=== PATIENT | female | born 1965 | race Caucasian/White ===

== ENCOUNTER 2019-10-25 22:39 | Emergency (ER) | payer MEDICAID ==
[~2019-10-25] VITALS: Ht 154.9 cm; Wt 75.0 kg
[2019-10-25 22:50] VITALS: BP 131/101
[2019-10-26] MEDS ORDERED: LORazepam 1 MG tablet PO ONE (00:10)
[2019-10-26] MEDS ORDERED: OLAN10TA3 PO (00:11)
[2019-10-26] MEDS ORDERED: DIVA500T2 PO (00:11)
--- NOTE | 2019-10-26 00:41 | NUR ---
pt refusing food or snack. she is refusing her lorazepam states she doesnt want to take any "narcotics." she is upset and talks about her life situation. She was instructed to fill her scripts and start taking her medications to help with her anxiety and stress.
== END 2019-10-26 00:42 | disposition home or self-care (01) ==
LOC: ER 22:40
DX: F41.9 Anxiety disorder, unspecified (principal); R56.9 Unspecified convulsions; F32.9 Major depressive disorder, single episode, unspecified; Z59.0 Homelessness; Z56.0 Unemployment, unspecified; Z88.8 Allergy status to other drugs, medicaments and biological substances; Z79.899 Other long term (current) drug therapy
CPT/HCPCS: 99284

== ENCOUNTER 2022-05-08 00:52 | Emergency (ER) | payer MEDICAID ==
[~2022-05-08] VITALS: Ht 152.4 cm; Wt 54.5 kg
[~2022-05-08 00:52] MED LIST: DIVA500T2 PO; OLAN10TA3 PO
[2022-05-08] MEDS ORDERED: HYDR50CA PO (02:00)
[2022-05-08] MEDS ORDERED: ALB0.5UD (02:00)
[2022-05-08] MEDS ORDERED: GABA300S (02:00)
[2022-05-08] MEDS ORDERED: HYDR50CA5 PO (02:00)
[2022-05-08] MEDS ORDERED: CEPH-585 PO (06:17)
[2022-05-08 06:31] VITALS: BP 145/73
== END 2022-05-08 06:33 | disposition home or self-care (01) ==
LOC: ER 00:53
DX: S61.411A Laceration without foreign body of right hand, initial encounter (principal); F41.9 Anxiety disorder, unspecified; F32.A Depression, unspecified; Z86.69 Personal history of other diseases of the nervous system and sense organs; Z72.89 Other problems related to lifestyle; Z56.0 Unemployment, unspecified; Z59.00 Homelessness unspecified; Z88.8 Allergy status to other drugs, medicaments and biological substances; Z79.2 Long term (current) use of antibiotics; Z79.899 Other long term (current) drug therapy; W01.0XXA Fall on same level from slipping, tripping and stumbling without subsequent striking against object, initial encounter; Y93.89 Activity, other specified; Y92.89 Other specified places as the place of occurrence of the external cause; Y99.8 Other external cause status
CPT/HCPCS: 12002; 99283; A6258; A6449

== ENCOUNTER 2024-01-05 16:44 | Outpatient (CLI) | payer MEDICAID ==
[~2024-01-05 16:44] MED LIST changes: +ALB0.5UD; +GABA300S3; +HYDR50CA PO; +HYDR50CA5 PO
== END 2024-01-05 23:59 | disposition home or self-care (01) ==
LOC: RAD 16:44
PROVIDERS: ATTEND Family Medicine
DX: M25.862 Other specified joint disorders, left knee (principal); M25.562 Pain in left knee
CPT/HCPCS: 73564

== ENCOUNTER 2024-03-28 13:46 | Outpatient (CLI) | payer MEDICAID | END 2024-03-28 23:59 | disposition home or self-care (01) | LOC: RAD 13:46 | PROVIDERS: ATTEND Family Medicine | DX: S61.213A Laceration without foreign body of left middle finger without damage to nail, initial encounter (principal); M41.86 Other forms of scoliosis, lumbar region; M43.8X3 Other specified deforming dorsopathies, cervicothoracic region; M43.8X5 Other specified deforming dorsopathies, thoracolumbar region; M54.50 Low back pain, unspecified; M79.89 Other specified soft tissue disorders; X58.XXXA Exposure to other specified factors, initial encounter; Y93.89 Activity, other specified; Y92.89 Other specified places as the place of occurrence of the external cause; Y99.8 Other external cause status | CPT/HCPCS: 72082; 73120 ==

== ENCOUNTER 2024-11-02 16:50 | Emergency (ER) | payer MEDICAID ==
[~2024-11-02] VITALS: Ht 167.6 cm; Wt 53.6 kg
[2024-11-02 16:54] VITALS: TEMP 98.7
[2024-11-02 17:57] LABS: BASOPHILS # (AUTO) 0.1 X10'3 (0-0.2); BASOPHILS % (AUTO) 0.3 % (0-1); EOSINOPHILS # (AUTO) 0.1 X10'3 (0-0.9); EOSINOPHILS % (AUTO) 0.7 % (0-6); HEMATOCRIT 40.2 % (35.0-45.0); HEMOGLOBIN 13.2 g/dl (12.0-16.0); LYMPHOCYTES # (AUTO) 0.9 X10'3 (1.1-4.8); LYMPHOCYTES % (AUTO) 4.7 % (21-51); MEAN CORPUSCULAR HEMOGLOBIN 28.8 PG (27.0-31.0); MEAN CORPUSCULAR HGB CONC 32.8 g/dL (33.0-36.5); MEAN CORPUSCULAR VOLUME 87.8 FL (78-98); MEAN PLATELET VOLUME 6.9 FL (7.4-10.4); MONOCYTES # (AUTO) 0.8 X10'3 (0-0.9); MONOCYTES % (AUTO) 4.4 % (2-12); NEUTROPHILS # (AUTO) 17.2 X10'3 (1.8-7.7); NEUTROPHILS % (AUTO) 89.9 % (42-75); PLATELET COUNT 463 X10'3 (140-440); RED BLOOD COUNT 4.58 X10'6 (4.20-5.60); RED CELL DISTRIBUTION WIDTH 15.4 % (11.5-14.5); WHITE BLOOD COUNT 19.1 X10'3 (4.5-11.0)
[2024-11-02 18:07] LABS: ALANINE AMINOTRANSFERASE 31 U/L (12-78); ALBUMIN 3.4 G/DL (3.4-5.0); ALBUMIN/GLOBULIN RATIO 0.8 (1.1-1.5); ALKALINE PHOSPHATASE 142 IU/L (46-116); ANION GAP 10 (8-16); ASPARTATE AMINO TRANSFERASE 30 U/L (10-37); BILIRUBIN,TOTAL 0.4 MG/DL (0.1-1.0); BLOOD UREA NITROGEN 12 MG/DL (7-18); BUN/CREATININE RATIO 20.7 (10.0-20.0); CALCIUM 8.6 MG/DL (8.5-10.1); CHLORIDE 104 MMOL/L (99-107); CREATININE 0.58 MG/DL (0.40-0.90); GLUCOSE 116 MG/DL (70-104); POTASSIUM 3.4 MMOL/L (3.5-5.1); SODIUM 141 MMOL/L (135-145); TOTAL PROTEIN 7.6 G/DL (6.4-8.2); eCRCL 91 ML/MIN; eGFR > 90 ML/MIN
[2024-11-02 18:09] LABS: LIPASE 338 U/L (16-77)
[2024-11-02] MEDS ORDERED: iohexol 300mg/ml 100ml inj. ONE (19:14)
[2024-11-02 20:50] LABS: BILIRUBIN,URINE NEGATIVE (Neg); CLARITY,URINE CLEAR (Clear); COLOR,URINE YELLOW (Yellow); GLUCOSE, URINE NEGATIVE (Neg); KETONES,URINE TRACE mg/dl (Neg); LEUKOCYTE ESTERASE ,URINE NEGATIVE (Neg); NITRITES, URINE NEGATIVE (Neg); OCCULT BLOOD,URINE NEGATIVE (Neg); PROTEIN,URINE NEGATIVE (Neg); UROBILINOGEN,URINE 0.2 E.U/dL (0.2-1.0)
[2024-11-02 21:11] VITALS: BP 116/72; PULSE 95; RESP 16; O2SAT 98
[2024-11-02 21:15] LABS: UA COLLECTION TYPE CLN CATCH MIDSTREAM
== END 2024-11-02 21:55 | disposition home or self-care (01) ==
LOC: ER 16:51
DX: R10.84 Generalized abdominal pain (principal); F41.9 Anxiety disorder, unspecified; F32.A Depression, unspecified; F10.90 Alcohol use, unspecified, uncomplicated; Y90.9 Presence of alcohol in blood, level not specified; Z88.8 Allergy status to other drugs, medicaments and biological substances; Z79.899 Other long term (current) drug therapy; Z56.0 Unemployment, unspecified; Z59.00 Homelessness unspecified
CPT/HCPCS: 36415; 74177; 80053; 81003; 83605; 83690; 84145; 85025; 93005; 99285; Q9967

== ENCOUNTER 2025-01-31 06:37 | Day surgery (SDC) | payer MEDICAID ==
--- NOTE | 2025-01-23 10:40 | ELECTROCARDIOGRAPH REPORT ---
[facility] Test Date: 2025-01-23 Test Time: 10:38:09 Pat Name: ART SEO Department: [facility]-PRE-OP Patient ID: [id number] Room: Gender: F Ear Specialist: MAN : 1965 Requested By: RENETTA JEAN Order Number: [id number] Reading MD: Dr. FARHAT Walker Measurements Intervals Tullos Rate: 61 P: 28 NE: 132 QRS: 10 QRSD: 90 T: -5 QT: 438 QTc: 442 Interpretive Statements Sinus rhythm Probable left ventricular hypertrophy Electronically Signed On 01-23-2025 17:23:[address] FARHAT Walker Please click the below link to view image of tracing.
[2025-01-23 10:42] LABS: BASOPHILS % (AUTO) 0.7 % (0-1); EOSINOPHILS # (AUTO) 0.3 X10'3 (0-0.9); EOSINOPHILS % (AUTO) 4.3 % (0-6); LYMPHOCYTES # (AUTO) 2.2 X10'3 (1.1-4.8); LYMPHOCYTES % (AUTO) 35.5 % (21-51); MEAN CORPUSCULAR HEMOGLOBIN 29.7 PG (27.0-31.0); MEAN CORPUSCULAR HGB CONC 33.7 g/dL (33.0-36.5); MEAN PLATELET VOLUME 7.2 FL (7.4-10.4); MONOCYTES # (AUTO) 0.4 X10'3 (0-0.9); MONOCYTES % (AUTO) 6.8 % (2-12); NEUTROPHILS # (AUTO) 3.2 X10'3 (1.8-7.7); NEUTROPHILS % (AUTO) 52.7 % (42-75); PRE OP HEMATOCRIT 40.6 % (35.0-45.0); PRE OP HEMOGLOBIN 13.7 g/dL (12.0-16.0); PRE OP PLATELET COUNT 347 X10'3 (140-440); PRE OP WHITE BLOOD COUNT 6.2 10'3 (4.8-10.8); RED BLOOD COUNT 4.61 X10'6 (4.20-5.60); RED CELL DISTRIBUTION WIDTH 15.9 % (11.5-14.5)
[2025-01-23 11:03] LABS: ALBUMIN 3.5 G/DL (3.4-5.0); ALBUMIN/GLOBULIN RATIO 0.9 (1.1-1.5); ALKALINE PHOSPHATASE 98 IU/L (46-116); BLOOD UREA NITROGEN 14 MG/DL (7-18); BUN/CREATININE RATIO 20.6 (10.0-20.0); CALCIUM 8.8 MG/DL (8.5-10.1); CHLORIDE 106 MMOL/L (99-107); CREATININE 0.68 MG/DL (0.40-0.90); PRE OP ALT 21 U/L (30-65); PRE OP ANION GAP 7 (8-16); PRE OP AST 20 U/L (10-37); PRE OP BILIRUB, TOTAL 0.2 MG/DL (0.0-1.0); PRE OP GLUCOSE 78 MG/DL (70-104); PRE OP POTASSIUM 4.6 MMOL/L (3.4-5.1); PRE OP SODIUM 141 MMOL/L (135-145); TOTAL CARBON DIOXIDE 27.8 MMOL/L (24-32); TOTAL PROTEIN 7.4 G/DL (6.4-8.2); eGFR 89 ML/MIN
[~2025-01-31] VITALS: Ht 154.9 cm; Wt 58.1 kg
[2025-01-31] VITALS (11 sets, daily range): BP systolic 104–153; BP diastolic 68–88; PULSE 61–80; RESP 8–16; TEMP 98.3; O2SAT 92–100
[2025-01-31] MEDS: ceFAZolin 2gm in dextrose, iso 50 ML IV ONE (05:30)
[~2025-01-31 06:37] MED LIST changes: -ALB0.5UD; +ALBU90AE3 IH; -DIVA500T2 PO; -GABA300S3; -HYDR50CA PO; +METH-603 PO; -OLAN10TA3 PO; +OLAN2.5T3 PO
[2025-01-31] MEDS: famotidine 20mg tablet PO ONE (07:18)
[2025-01-31] MEDS: ringers solution, lacted 1,000 ML IV SCH ×2 (07:18→10:04)
[2025-01-31] MEDS ORDERED: fentaNYL/PF 50MCG/1 ML 2ML syringe IV PRN ×2 (07:20)
[2025-01-31] MEDS ORDERED: ondansetron/PF 4mg/2ml inj IV PRN (07:20)
[2025-01-31] MEDS ORDERED: morphine 2 MG/ML inj. syringe IV PRN (07:20)
[2025-01-31] MEDS ORDERED: morphine 4 MG/ML inj SYRINge IV PRN (07:20)
[2025-01-31] MEDS ORDERED: hydrALAZINE 20mg/ml inj. IV PRN (07:20)
[2025-01-31] MEDS ORDERED: labetalol 20mg/4ml (5mg/ml) syringe IV PRN (07:20)
[2025-01-31 08:01] LABS: URINE AMPHETAMINE SCREEN NEGATIVE (Neg); URINE BARBITUATE SCREEN NEGATIVE (Neg)
[2025-01-31 08:02] LABS: URINE BENZODIAZEPINES SCREEN NEGATIVE (Neg); URINE CANNABINOID SCREEN NEGATIVE (Neg); URINE COCAINE SCREEN NEGATIVE (Neg); URINE METHADONE SCREEN POSITIVE (Neg); URINE OPIATE SCREEN NEGATIVE (Neg); URINE PHENCYCLIDINE SCREEN NEGATIVE (Neg)
[2025-01-31] MEDS ORDERED: BUPIVAcaine 2.5mg/ml inj 50ml vial (contains preservative) ONE (08:40)
[2025-01-31] MEDS ORDERED: LIDOcaine 1% 30ml preserv. free vial ONE (08:40)
[2025-01-31] MEDS ORDERED: fentaNYL/PF 50MCG/1 ML 2ML syringe ONE (08:59)
[2025-01-31] MEDS ORDERED: LIDOcaine 2% (20mg/ml) 5ml vial ONE (09:00)
[2025-01-31] MEDS ORDERED: acetaminophen 1,000mg/100ml IV 100 ML IV ONE (09:00)
[2025-01-31] MEDS ORDERED: ondansetron/PF 4mg/2ml inj ONE (09:00)
[2025-01-31] MEDS ORDERED: propofol inj 20 ML IV ONE (09:00)
[2025-01-31] MEDS ORDERED: midazolam 1 mg/ML 2ml injection ONE (09:00)
[2025-01-31] MEDS ORDERED: ePHEDrine 50MG/ML INJ. ONE (09:33)
--- NOTE | 2025-01-31 09:51 | OPERATIVE REPORT ---
Operative Report Providers to ~ Date of Procedure: January 31, 2025 Pre-Operative Diagnosis: Breast cancer, right upper outer quadrant Post-Operative Diagnosis SAME as PRE-Op Procedure Performed Stereotactic tracking marker localization segmental mastectomy Surgeon: Jorge Al MD Metallurgical Engineering Technician None Anesthesiologist: Son Guerrier Type of Anesthesia: General Findings: Tracking marker identified within 9 mm of the closest margin which is anterior Complications None Prosthetics\Implants used: None Estimated Blood Loss: Less than 25 cc Specimen Removed: Right upper outer quadrant specimen Description of Procedure: Patient was identified in the supine position with her right arm extended. She was prepped and draped in the usual sterile fashion. Prior to surgery the patient was had a stereotactic tracking marker placed in my office. Preoperative antibiotics have been administered within 1 hour prior to the procedure. SCDs have been applied. A curvilinear incision was made over the audible tracking marker signal. Flaps were raised towards and away from the nip ple. The underlying breast mass is excised in a segmental fashion using the LigaSure. The specimen was oriented and sent for pathologic study in formalin. The wound is thoroughly irrigated. Hemostasis was obtained. The incision is closed with interrupted 3-0 Vicryl pop-off for the deep layers and a running 3-0 Stratafix for skin. The incision was dressed with Dermabond and a Steri-Strips. The patient was taken to the PAR in stable condition. Estimated blood loss less than 25 cc. Final sponge and needle count was correct x2 Counts repoted as correct: Yes JORGE AL MD January 31, 2025 09:51
== END 2025-01-31 11:27 | disposition home or self-care (01) ==
LOC: PAS 06:37
PROVIDERS: ATTEND Surgery
DX: C50.411 Malignant neoplasm of upper-outer quadrant of right female breast (principal); K21.9 Gastro-esophageal reflux disease without esophagitis; Z79.899 Other long term (current) drug therapy; Z98.890 Other specified postprocedural states
CPT/HCPCS: 19301; 36415; 80053; 80305; 82948; 85025; 93005; J0131; J2003; J2250; J2405; J2704; J3010; J3490; J7030; J7120; Z7506; Z7512; A4215; A4618; A6449; A7000

== ENCOUNTER 2025-02-02 11:01 | Emergency (ER) | payer MEDICAID ==
[~2025-02-02] VITALS: Ht 154.9 cm; Wt 60.8 kg
[2025-02-02 11:06] VITALS: BP 126/82; PULSE 69; RESP 18; O2SAT 96
[2025-02-02] MEDS ORDERED: CLIN300C3 PO (12:44)
--- NOTE | 2025-02-02 12:44 | Physician Documentation ---
HPI ~ General Chief Complaint: Tooth Problem Stated Complaint: TOOTH PAIN Time Seen by MD: 11:50 Primary Medical Doctor: NONE History of Present Illness HPI Comment Presents with a complaint of right upper tooth pain. She states she does have a dentist and has been prescribed I think he do via multiple rounds of antibiotics. States originally she was on amoxicillin. Reports increased swelling and pain Day of Onset: February 02, 2025 Medication Reconciliation Allergies: Coded Allergies: triazolam (Verified Allergy, Intermediate, HEADACHE, 01/30/25) haloperidol (Unverified Allergy, Mild, HEADACHE, 05/08/22) Scheduled Clindamycin HCl (Cleocin HCl), 1 CAP PO Q8H Hydroxyzine Pamoate (Hydroxyzine Pamoate), 1 CAP PO HS, (Reported) Methadone Hcl* (Dolophine*), 50 MG PO DAILY, (Reported) Olanzapine (Zyprexa), 1 TAB PO HS, (Reported) Scheduled PRN Albuterol Sulfate (Proair Digihaler), 1-2 PUFFS IH Q4HRT PRN for SOB or wheezing, (Reported) Discontinued Medications Albuterol Sulfate* (Proventil Neb*), (Reported) Discontinued Reason: Prescription changed Past Medical History Past Medical History: Seizures, Anxiety, Depression Past Surgical History: noncontributory Alcohol Use: Heavy Drug Use: none Lives In: Homeless Occupation: unemployed Review of Systems All Other Systems at this time: Reviewed and Negative ROS As stated above in the HPI, otherwise all systems are reviewed and negative. Physical Exam Vital Signs: Temperature: 97.9, Source: Temporal, Heart Rate: 69, Respiratory Rate: 18, BP: 126/82, Pulse Oximetry: 96, Weight: 60.800 Oxygen Flow Rate: 0 Physical Exam General: Alert, no apparent distress. HEENT: PERRL, EOMI, no injection, moist mucous membranes. Poor dentition throughout oral cavity notable caries in the upper right molars ,surrounding erythema Neck: Full range of motion. Psychiatric: Normal mood and affect. Skin: Normal color, warm and dry. No edema, no ecchymosis. Progress Results/Orders Results/Orders Completed Orders - DICK MARTINEZ NP Clindamycin Capsule (Cleocin Capsule) (02/02/25 12:40) Medications Received in ER Medications (Trade) Dose Ordered Sig/Edda Route PRN Reason Start Time Stop Time Status Last Admin Dose Admin (Cleocin capsule) 300 mg ONCE ONCE PO 02/02/25 12:40 02/02/25 12:41 DC 02/02/25 12:55 300 MG Vital Signs 02/02/25 02/02/25 11:06 12:58 Temp 97.9 97.9 Pulse 69 Resp 18 B/P (MAP) 126/82 Pulse Ox 96 O2 Flow Rate 0 Medical Decision Making Findings We will treat patient empirically for a tooth abscess. Patient needs to follow up in the outpatient setting for further evaluation. Nontoxic appearing and does not present any acute distress Differential Dx:Considerations: Include: Alveolar fracture, Alveolar osteitis, ANUG, Facial Cellulitis, Periapical abscess, Peridontal abscess, Post-extraction bleeding, Pulpitis, Tooth avulsion, Tooth eruption, Tooth Fracture, Trigeminal neuralgia, Tooth subluxation, Other Departure Disposition: 01 HOME / SELF CARE / HOMELESS Impression: Primary Impression: Disturbances in tooth eruption Additional Impression: Dental caries Condition: Stable Discharge Instructions: Dental Caries, Adult Referrals: NO PRIMARY CARE PROVIDER (PCP) Prescriptions Clindamycin HCl (Cleocin HCl) 300 Mg Capsule 1 CAP PO Q8H for 10 Days, #30 CAP Prov: DICK MARTINEZ NP 02/02/25 Signature Scribe Signature: F Attestation: The note accurately reflects work and decisions made by me.Dick Devlin NP 02/02/25 15:39 DICK MARTINEZ NP February 02, 2025 12:44
[2025-02-02] MEDS: clindamycin 150mg capsule PO ONE (12:55)
[2025-02-02 12:58] VITALS: TEMP 97.9
== END 2025-02-02 13:00 | disposition home or self-care (01) ==
LOC: ER 11:02
DX: K02.9 Dental caries, unspecified (principal); K00.6 Disturbances in tooth eruption; F10.90 Alcohol use, unspecified, uncomplicated; F41.9 Anxiety disorder, unspecified; F32.A Depression, unspecified; Z59.00 Homelessness unspecified; Z56.0 Unemployment, unspecified; Z88.8 Allergy status to other drugs, medicaments and biological substances; Z79.899 Other long term (current) drug therapy; Y90.9 Presence of alcohol in blood, level not specified
CPT/HCPCS: 99283

== ENCOUNTER 2025-06-04 09:43 | Outpatient (CLI) | payer MEDICAID ==
--- NOTE | 2025-06-04 14:15 | RADIOLOGY REPORT ---
Scoliosis spine Date: 06/04/2025 10:31 AM Indication: SCOLIOSIS SEVERE AND CHRONIC LOW BACK PAIN Comparison: DI SCOLIOSIS 2/3 on DOS: 03/28/24 Technique: Standing frontal and lateral views of the thoracolumbar spine were obtained. Findings/Impression: There is 35 degrees of levoscoliosis with the apex at approximately L2-L3.
== END 2025-06-04 23:59 | disposition home or self-care (01) ==
LOC: RAD 09:43
PROVIDERS: ATTEND Family Medicine
DX: M41.86 Other forms of scoliosis, lumbar region (principal); M54.16 Radiculopathy, lumbar region
CPT/HCPCS: 72084